=== PATIENT | female | born 2005 | race Caucasian/White ===

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

== ENCOUNTER → 2024-01-15 | Outpatient (CLI) | payer BC, MEDICAID, SELFPAY | END | disposition home or self-care (01) | LOC: LABSPEC 11:20 | PROVIDERS: PCP Student in an Organized Health Care Education/Training Program; Referring Provider Advanced Practice Midwife; Visit Provider Advanced Practice Midwife | DX: O98.819 Other maternal infectious and parasitic diseases complicating pregnancy, unspecified trimester (principal); A74.9 Chlamydial infection, unspecified; Z3A.00 Weeks of gestation of pregnancy not specified | CPT/HCPCS: 87081; 87491; 87591 ==

== ENCOUNTER 2024-02-04 22:18 | Inpatient (IN) | payer BC, MEDICAID, SELFPAY ==
[2024-02-04] VITALS (10 sets, daily range): BP systolic 133–142; BP diastolic 64–90; PULSE 67–112; RESP 14–16; TEMP 36.6–36.7; O2SAT 97–98; BMI 31.1
[2024-02-04] MEDS: Lactated Ringers 1,000 ML 50 ML IV (22:30)
[2024-02-04 23:01] LABS: Absolute Lymphocyte Count 1.68 X10^3/uL (0.83-4.51); Absolute Neutrophil Count 6.6 X10^3/uL (2.0-7.7); Basophil# 0.04 X10^3/uL; Basophil% 0.4 % (0-1); Eosinophil# 0.38 X10^3/uL; Hematocrit 34.9 % (37-47); Hemoglobin 12.1 g/dL (12.0-15.0); Lymphocyte # 1.68 X10^3/ul (0.83-4.51); Lymphocyte % 17.7 % (19-41); Mean Corp Hgb Conc 34.7 g/dL (32-36); Mean Corpuscular Hgb 30.9 pg (27.0-32.0); Mean Platelet Vol. 9.7 fl (6.2-12.0); Monocyte# 0.62 X10^3/uL; Monocyte% 6.5 % (0-10); NRBC Flagged by Analyzer 0 % (0-5); Neutrophil # 6.61 X10^3/uL (2.7-7.7); Neutrophil % 69.9 % (47-70); Platelet Count 193 K/mm3 (150-450); RBC Distribution Width SD 42.2 fl (35.1-43.9); Red Blood Count 3.92 M/mm3 (4.2-5.4); White Blood Count 9.5 K/mm3 (4.4-11.0)
[2024-02-04] MEDS: Lactated Ringers 1,000 ML 999 ML IV (23:27)
[2024-02-04 23:50] LABS: Syphilis Antibodies Reactive
[2024-02-05] VITALS (57 sets, daily range): BP systolic 114–153; BP diastolic 59–83; PULSE 73–111; RESP 16–20; TEMP 36.5–37.8; O2SAT 94–99
[2024-02-05] MEDS: fentaNYL-bupivacaine (epidural) 100 ML BAG EPIDURAL ×2 (00:05→05:19)
--- NOTE | 2024-02-05 06:56 | HP.PCM.OB_ITS ---
HPI - General General Date of Admission: 02/04/24 Date of Service: 02/05/24 HPI Narrative JAQUELINE BARKER, is a 18 F at 39.3 weeks gestation who presents to unit in active labor. Maternal Data Information GEORGIE Calculator Estimated Delivery Date Method Current WG Current Estimate 02/09/24 LMP (Certain) 39w 3d Final GEORGIE: 02/09/24 Final GEORGIE Source: US >20 weeks Gestational age: 39.3 weeks [facility] Medical History (Updated 02/05/24 @ 07:02 by Mariah Eric CNM) Seasonal allergies Bipolar disorder Home Medications ?Medication ?Instructions ?Recorded ?Last Taken ?Type multivitamin no.47-iron fum 27 1 cap PO DAILY 06/26/23 02/04/24 History mg-folate no.1 1 mg-dha 300 mg capsule (PNV-DHA) Allergy/AdvReac Type Severity Reaction Status Date / Time milk Allergy Anaphylaxis Verified 02/04/24 22:43 Family History Grandmother Cancer, Onset Age: 80 maternal Great Grandmother- ovarian Surgical History S/P tonsillectomy Social History adopted: No household members: family current occupational status: employed 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 pets and animals: Yes pets and animals: dog(s) history of recent travel: No sexually active: Yes Smoking Status: Never smoker alcohol intake: never substance use type: does not use well-balanced diet: daily or most days caffeine: Yes (occasional) Type: coffee Number of servings: 1 eating out: 1-3 times/week during the past year weight has: remained stable what type of physical activity do you participate in: walking frequency: 1-2 times per week duration: 60-90 minutes/day dirk/catholic: None seatbelt use: always do you feel safe at home: Yes additional social history: FOB Kamari History 1 Elective abortions Hx Para 0 Spontaneous abortions Hx # Term Pregnancies Ectopic pregnancies Hx # Pregnancies Multiple births # of living children Visit Details Expected Delivery Route/Plan Labor Preferences- CB/BF classes: none labor support person: [] labor intervention preferences: pain management options preferred: plans epidural cut cord/dad catch: [] : [] PP control planned: [] discussed possible routes of delivery and associated risks: [] special requests: [] Plans Covid status: [] Flu vaccine: declined Tdap vaccine: given Rhogam:na LARC form signed: dclined movement and labor precautions reviewed. Problem list reviewed and updated with the most current plan of care details and appropriate orders placed. Relevant counseling for the gestational age provided. Continue routine care and follow up unless otherwise noted in visit notes/problem list details OB Flowsheet Initial Weight: 119 lb Date -?-?-?-?-?-?-?-?-?-?-?-?- EGA Weight BP Urine Prot -?-?-?-?-?-?-?-?-?-?-?-?- Glucose FHR FuHt Pres Dilation -?-?-?-?-?-?-?-?-?-?-?-?- Effaced St Visit Note 07/02/23 -?-?-?-?-?-?-?-?-?-?-?-?- 8w 2d 119 lb 4 oz (+4 oz) 138/92 -?-?-?-?-?-?-?-?-?-?-?-?- 168 -?-?-?-?-?-?-?-?-?-?-?-?- KW- CRL cons wit h dates. Declines NIPT. 07/30/23 -?-?-?-?-?-?-?-?-?-?-?-?- 12w 2d 121 lb (+2 lb) 130/73 Negative -?-?-?-?-?-?-?-?-?-?-?-?- Negative 160 -?-?-?-?-?-?-?-?-?-?-?-?- SM- no vb crmapi ng reviewed needs NOB labs drawn, took chlamydia treatment, plan DANNIELLE next visit, partner was treated. 08/27/23 -?-?-?-?-?-?-?-?-?-?-?-?- 16w 2d 127 lb 8 oz (+8 lb 8 oz) 126/73 -?-?-?-?-?-?-?-?-?-?-?-?- 165 -?-?-?-?-?-?-?-?-?-?-?-?- JV- Chlamydia TO C today. no complaints. mfm ultrasound scheduled for 09/1610/02/23 -?-?-?-?-?-?-?-?-?-?-?-?- 21w 3d 141 lb (+22 lb) 102/66 Negative -?-?-?-?-?-?-?-?-?-?-?-?- Negative 150 22 -?-?-?-?-?-?-?-?-?-?-?-?- KW- no vb/crampi ng. good fm. normal anatomy. KW- no vb/cramping. good fm. normal anatomy. DANNIELLE neg on 08/2610/19/23 -?-?-?-?-?-?-?-?-?-?-?--?- 23w 6d 146 lb 4 oz (+27 lb 4 oz) 120/68 Negative -?-?-?-?-?-?-?-?-?-?-?-?- Negative 165 23 -?-?-?-?-?-?-?-?-?-?-?-?- JV- no lof, vagi nal bleeding, or cramping. no complaints today. gct ordered. pt starting back at school next thursday. 11/16/23 -?-?-?-?-?-?-?-?-?-?-?-?- 27w 6d 152 lb (+33 lb) 152 lb (+33 lb) 121/88 Negative -?-?-?-?-?-?-?-?-?-?-?-?- Negative 150 27 -?-?-?-?-?-?-?-?-?-?-?-?- SM- no vb lof go od fm no regular ctx 12/04/23 -?-?-?-?-?-?-?-?-?-?-?-?- 30w 3d 156 lb (+37 lb) 121/72 Negative -?-?-?-?-?-?-?-?-?--?-?-?- Negative 140 31 -?-?-?-?-?-?-?-?-?-?-?-?- LC- no vb/ctx/lo f. good fm. no concerns today. desires tdap next visit. 12/22/23 -?-?-?-?-?-?--?-?-?-?-?-?- 33w 0d 164 lb (+45 lb) 113/72 Negative -?-?-?-?-?-?-?-?-?-?-?-?- Negative 135 33 -?-?-?-?-?-?-?-?-?-?-?-?- KW- no vb/crampi ng. good fm. LARC today. declines Tdap and flu. 01/01/24 -?-?-?-?-?-?-?-?-?-?-?-?- 34w 3d 168 lb (+49 lb) 122/77 Negative -?-?-?-?-?-?-?-?-?-?-?-?- Negative 140 34 Cephalic -?-?-?-?-?-?-?-?-?-?-?-?- SM- no vb lof go od fm no regular ctxx tdap given 01/15/24 -?-?-?-?-?-?-?-?-?-?-?-?- 36w 3d 169 lb (+50 lb) 118/71 -?-?-?-?-?-?-?-?-?-?-?-?- 140 36 Cephalic -?-?-?-?-?-?-?-?-?-?-?-?- KW- no vb/lof/ct x. good fm. gbs and ggc today. declines vag exam today 01/22/24 -?-?-?-?-?-?-?-?-?-?-?-?- 37w 3d 172 lb (+53 lb) 137/76 -?-?-?-?-?-?-?-?-?-?-?-?- 145 37 Cephalic -?-?-?-?-?-?-?-?-?-?-?-?- kw- No vb/lof/ct x. good fm. no concerns today. 02/03/24 -?-?-?-?-?-?-?-?-?-?-?-?- 39w 1d 178 lb 8 oz (+59 lb 8 oz) 130/81 Negative -?-?-?-?-?-?-?-?-?-?-?-?- Negative 140 39 Cephalic 1 .5 -?-?-?-?-?-?-?-?-?-?--?-?- 70 -1 SM- no vb lof good fm nro eugalr ctx NST FHR Rate Baby A Baseline: 145 Variability:: Moderate Accelerations:: 15 x 15 Decelerations:: None NST Reactive:: Yes FHR Category:: Category I Uterine Activity:: 2-3 ROS Constitutional Constitutional: Denies change in weight, fatigue, fever(s), headache(s), poor appetite or weakness Eyes Eyes: Denies blurry vision, change in vision, floaters, seeing flashes or spots in vision ENT HEENT: Denies dizziness, headache(s), loss taste/smell or sore throat Cardiovascular Cardiovascular: Denies chest pain, dizziness, dyspnea, irregular heart rhythm, lightheadedness, palpitations or rapid heart rate Respiratory/Chest Respiratory/Chest: Denies change in mental status, chest tightness, cough, dyspnea or breast pain Gastrointestinal Gastrointestinal: Denies anorexia, chewing difficulty, constipation, diarrhea or weight changes Genitourinary Genitourinary: Denies difficulty urinating, dysuria, flank pain, genital pain, urinary frequency or urinary urgency Musculoskeletal Musculoskeletal: Denies back pain, difficulty walking, extremity pain, joint pain, muscle cramps or muscle weakness Integumentary Integumentary: Denies lesions or unusual bruising Neurologic Neurologic: Denies abnormal movements, abnormal speech, dizziness, numbness, seizure-like activity, syncope or weakness Psychiatric Psychiatric: Denies behavioral changes, change in appetite, confusion, depression, homicidal ideation, suicidal ideation or suicidal thoughts Endocrine Endocrinology: Denies excessive sweating, polydipsia or polyuria Hematologic/Lymphatic Hematologic/Lymphatic: Denies anemia Allergic/Immunologic Allergic/Immunologic: Denies itchy eyes, lip swelling, throat swelling, tongue swelling or wheezing Vital Signs Vital Signs Vital Signs: 02/04/24 22:07 02/04/24 22:07 02/04/24 22:07 Temperature 98.1 F Temperature Source Temporal Pulse Rate Respiratory Rate 14 Blood Pressure BP Systolic BP Diastolic Pulse Ox 02/04/24 22:09 02/04/24 22:09 02/04/24 23:13 Temperature Temperature Source Pulse Rate 82 Respiratory Rate Blood Pressure 138/77 H 135/75 H BP Systolic 138 135 BP Diastolic 77 75 Pulse Ox 02/04/24 23:13 02/04/24 23:13 02/04/24 23:13 Temperature Temperature Source Temporal Pulse Rate 94 Respiratory Rate 16 Blood Pressure BP Systolic BP Diastolic Pulse Ox 02/04/24 23:13 02/04/24 23:46 02/04/24 23:46 Temperature 97.9 F Temperature Source Pulse Rate 112 H Respiratory Rate Blood Pressure 142/89 H BP Systolic 142 BP Diastolic 89 Pulse Ox 02/04/24 23:47 02/04/24 23:47 02/04/24 23:52 Temperature Temperature Source Pulse Rate 92 98 Respiratory Rate Blood Pressure BP Systolic BP Diastolic Pulse Ox 97 02/04/24 23:52 02/04/24 23:53 02/04/24 23:53 Temperature Temperature Source Pulse Rate 106 H Respiratory Rate Blood Pressure 141/90 H BP Systolic 141 BP Diastolic 90 Pulse Ox 98 02/04/24 23:55 02/04/24 23:55 02/04/24 23:57 Temperature Temperature Source Pulse Rate 67 92 Respiratory Rate Blood Pressure 138/71 H BP Systolic 138 BP Diastolic 71 Pulse Ox 02/04/24 23:57 02/04/24 23:58 02/04/24 23:58 Temperature Temperature Source Pulse Rate 84 Respiratory Rate Blood Pressure 133/64 H BP Systolic 133 BP Diastolic 64 Pulse Ox 98 02/04/24 23:58 02/05/24 00:02 02/05/24 00:02 Temperature Temperature Source Pulse Rate 93 Respiratory Rate 16 Blood Pressure BP Systolic BP Diastolic Pulse Ox 98 02/05/24 00:03 02/05/24 00:03 02/05/24 00:03 Temperature Temperature Source Pulse Rate 101 H Respiratory Rate 16 Blood Pressure 136/78 H BP Systolic 136 BP Diastolic 78 Pulse Ox 02/05/24 00:08 02/05/24 00:08 02/05/24 00:08 Temperature Temperature Source Pulse Rate 98 Respiratory Rate 16 Blood Pressure 138/79 H BP Systolic 138 BP Diastolic 79 Pulse Ox 02/05/24 00:13 02/05/24 00:13 02/05/24 00:13 Temperature Temperature Source Pulse Rate 84 Respiratory Rate 16 Blood Pressure 125/59 H BP Systolic 125 BP Diastolic 59 Pulse Ox 02/05/24 00:14 02/05/24 00:14 02/05/24 00:18 Temperature Temperature Source Pulse Rate 79 Respiratory Rate Blood Pressure 134/64 H BP Systolic 134 BP Diastolic 64 Pulse Ox 98 02/05/24 00:18 02/05/24 00:18 02/05/24 00:19 Temperature Temperature Source Pulse Rate 90 90 Respiratory Rate 16 Blood Pressure BP Systolic BP Diastolic Pulse Ox 02/05/24 00:19 02/05/24 00:23 02/05/24 00:23 Temperature Temperature Source Pulse Rate 95 Respiratory Rate Blood Pressure 121/80 H BP Systolic 121 BP Diastolic 80 Pulse Ox 98 02/05/24 00:23 02/05/24 00:24 02/05/24 00:24 Temperature Temperature Source Pulse Rate 86 Respiratory Rate 16 Blood Pressure BP Systolic BP Diastolic Pulse Ox 98 02/05/24 00:29 02/05/24 00:29 02/05/24 00:34 Temperature Temperature Source Pulse Rate 79 91 Respiratory Rate Blood Pressure BP Systolic BP Diastolic Pulse Ox 98 02/05/24 00:34 02/05/24 00:39 02/05/24 00:39 Temperature Temperature Source Pulse Rate 78 Respiratory Rate Blood Pressure BP Systolic BP Diastolic Pulse Ox 98 98 02/05/24 01:06 02/05/24 01:06 02/05/24 01:11 Temperature Temperature Source Pulse Rate 82 Respiratory Rate Blood Pressure 153/82 H 140/72 H BP Systolic 153 140 BP Diastolic 82 72 Pulse Ox 02/05/24 01:11 02/05/24 01:11 02/05/24 01:11 Temperature Temperature Source Temporal Pulse Rate 83 Respiratory Rate 16 Blood Pressure BP Systolic BP Diastolic Pulse Ox 02/05/24 01:11 02/05/24 01:49 02/05/24 01:49 Temperature 97.9 F Temperature Source Pulse Rate 82 Respiratory Rate Blood Pressure 134/70 H BP Systolic 134 BP Diastolic 70 Pulse Ox 02/05/24 01:49 02/05/24 01:49 02/05/24 02:39 Temperature 97.7 F L Temperature Source Temporal Pulse Rate Respiratory Rate 16 Blood Pressure BP Systolic BP Diastolic Pulse Ox 02/05/24 02:39 02/05/24 02:39 02/05/24 02:39 Temperature Temperature Source Pulse Rate 83 Respiratory Rate 16 Blood Pressure 129/74 H BP Systolic 129 BP Diastolic 74 Pulse Ox 02/05/24 02:39 02/05/24 03:43 02/05/24 03:43 Temperature 97.8 F Temperature Source Temporal Pulse Rate Respiratory Rate Blood Pressure 126/72 H BP Systolic 126 BP Diastolic 72 Pulse Ox 02/05/24 03:43 02/05/24 03:43 02/05/24 03:43 Temperature 98.2 F Temperature Source Pulse Rate 82 Respiratory Rate 16 Blood Pressure BP Systolic BP Diastolic Pulse Ox 02/05/24 04:39 02/05/24 04:39 02/05/24 04:39 Temperature 98.1 F Temperature Source Temporal Pulse Rate Respiratory Rate 16 Blood Pressure BP Systolic BP Diastolic Pulse Ox 02/05/24 04:40 02/05/24 04:40 02/05/24 04:40 Temperature Temperature Source Pulse Rate 81 78 Respiratory Rate Blood Pressure 121/72 H BP Systolic 121 BP Diastolic 72 Pulse Ox 02/05/24 04:40 02/05/24 05:54 02/05/24 05:54 Temperature Temperature Source Temporal Pulse Rate Respiratory Rate Blood Pressure 122/78 H BP Systolic 122 BP Diastolic 78 Pulse Ox 97 02/05/24 05:54 02/05/24 05:54 02/05/24 05:54 Temperature 98.4 F Temperature Source Pulse Rate 82 Respiratory Rate 16 Blood Pressure BP Systolic BP Diastolic Pulse Ox Weight Weight: 181 lb 12.8 oz Body Mass Index (BMI) 31.1 Physical Exam Const alert, oriented x3 and no apparent distress General Appearance: cooperative Orientation / Consciousness: awake HEENT normocephalic Neck full ROM Lymph Lymphatic: no lymphadenopathy noted Chest inspection of chest normal Resp normal respiratory effort and normal air movement Effort and Inspection: able to speak in complete sentences and symmetric chest movement GI soft to palpation and non-tender Inspection: gravid Palpation: soft; Negative for tender external exam normal Back/Spine normal to inspection Extremity normal to inspection and full ROM Skin no rashes or lesions noted Psych mental status grossly normal Appearance: grossly normal Speech: normal speech Labs Labs Labs: Blood Type O POSITIVE Antibody Screen NEGATIVE Hct 34.9 % (37-47) L Hgb 12.1 g/dL (12.0-15.0) Syphilis Total Ab Reactive Rubella IgG Antibody Reactive (Nonreactive) Hep Bs Antigen Non-Reactive (Nonreactive) Hepatitis C Antibody Non-Reactive (Nonreactive) Chlamydia DNA (RODRIGUE) Positive (Negative) H N.gonorrhoeae DNA (RODRIGUE) Negative (Negative) HIV 1&2 Antibody Non-Reactive (Nonreactive) Glucose 1 Hr 50 gm 110 mg/dL (70-140) Miscellaneous Test Assessment & Plan (1) Active labor: PLAN: Patient presents IAL, plan expectant management for , pitocin/AROM PRN if needed. Pain management: plans epidural. GBS positive plan IV PCN. Management of any complications: see problem list I have reviewed the [facility] and made any clinically relevant updates. Dr Ceballos aware of admission and plan. agrees with above. (2) Chlamydia infection affecting : COMMENT: DANNIELLE at 2nd appt/neg and at 36 weeks (3) Depression: (4) Anxiety: (5) Supervision of high-risk : COMMENT: PRR, , GEORGIE 02/09/24,boy Kamari the fifth FOB Kamari (6) : QUALIFIERS: Weeks of gestation: 39 weeks Qualified Code(s): Z3A.39 - 39 weeks gestation of COMMENT: GBS neg, discussed genetic & carrier testing (7) Brendon-Danlos syndrome: (8) Bipolar disorder: COMMENT: not on meds Charges/Coding Multi Select Codes Urinary/Genital Urinary/Genital CPT Codes: No Charge
[2024-02-05] MEDS: Oxytocin 15 Units/NS 250ml 15 UNITS/250 ML IV.SOLN 334 UNITS IV (11:05)
[2024-02-05] MEDS: Oxytocin 10 UNITS/ML Vial IM (11:05)
--- NOTE | 2024-02-05 11:32 | EX.PCM.OBVAG ---
Assessment & Plan (1) Active labor: (2) Chlamydia infection affecting : COMMENT: DANNIELLE at 2nd appt/neg and at 36 weeks (3) Depression: (4) Anxiety: (5) Supervision of high-risk : COMMENT: PRR, , GEORGIE 02/09/24,boy Kamari the fifth FOB Kamari (6) : QUALIFIERS: Weeks of gestation: 39 weeks Qualified Code(s): Z3A.39 - 39 weeks gestation of COMMENT: GBS neg, discussed genetic & carrier testing (7) Brendon-Danlos syndrome: (8) Bipolar disorder: COMMENT: not on meds Maternal Data Information GEORGIE Calculator Estimated Delivery Date Method Current WG Current Estimate 02/09/24 LMP (Certain) 39w 3d Final GEORGIE: 02/09/24 Final GEORGIE Source: LMP Doctor Who Attended Delivery: Kalin Grey Vaginal Delivery Maternal Presentation Maternal Presentation: Active Labor Type of Induction: Amniotomy Vaginal Delivery Information Procedure Performed: Vacuum Assisted Vaginal Delivery Station at time of placement: +2 Number of vacuum pulls: 3 Number of vacuum pop offs: 2 Surgeon/Practitioner: Tatyana Mckinnon Date of Procedure: 02/05/24 Pre-Procedure Diagnosis: 18 y/o @ 39 weeks 3 days, active labor, maternal exhaustion Post-Procedure Diagnosis: 18 y/o @ 39 weeks 3 days, active labor, maternal exhaustion Type of anesthesia: Epidural Estimated Blood Loss: 200cc Time of Delivery: 11:02 Findings Description of procedure: The patient presented to labor and delivery in the middle of the night on 02/05/2020 for an active labor. She progressed to complete and pushed for 3 hours. heart rate was showing some late decelerations and variable decelerations and the patient was requesting a vacuum-assisted delivery. The risk benefits and alternatives were discussed with the patient and verbal consent was obtained. The Kiwi vacuum was placed on the infant's head at a +2 station. The first pull was uneventful however the suction was lost slightly. The second pole resulted in a pop-off the third pole was accompanied by a right medial lateral episiotomy and the head delivered atraumatically in the SARAH position. A loose nuchal cord ?1 was identified and easily reduced over the 's head. The anterior and posterior shoulders delivered without complication followed by the rest of the infant and the infant was placed on the maternal abdomen. Delayed cord clamping was employed for approximately 60 seconds. Cord was clamped and cut and gentle traction was applied to the cord and the placenta delivered spontaneously immediately following it was noted to be intact with three-vessel cord. The perineum and vagina were inspected and noted to have a first-degree laceration and a left vaginal sidewall laceration extending to the left labia. This was repaired using a 2-0 Vicryl. EBL was 200cc. Patient and infant tolerated delivery well. Presentation: SARAH Amniotic Membrane Rupture Type: Artificial Amniotic Fluid Description: Clear Placental Delivery Description: Spontaneous Placenta Disposition: [facility] Specimen collected: No Cord Vessel Description: 3 Vessels Cord Entanglement: Around neck x 1, loose Cord Gases: ABG and VBG Infant A Gender: Male (1 minute): 8 (5 minute): 9 Delayed Cord Clamping: Yes Livestock Nutritionist sewing machine repairer: No Post Vaginal Deli Medications given after delivery: IV Pitocin and IM Pitocin Episiotomy Description: 1st degree Laceration: Vaginal Extension/lac and 2nd degree Complication Complications: No Multi Select Codes Urinary/Genital Urinary/Genital CPT Codes: 21298 [facility]
--- NOTE | 2024-02-05 11:39 | DCINST_ITS ---
Discharge Instructions Diet Discharge Diet: No restrictions DC O2, CPAP, BIPAP needs Additional Home O2 Discharge instructions: No Dressing / Incision Discharge Activity: Return to Normal Activity, May Not Drive (while taking na rcotic pain medications.) and May Shower May resume sexual activity in: 4-6 weeks Dressing / Incision Call your doctor if your incision/area has: Continuous Slow Oozing, Sudden Increased Bleeding, Increased Pain/ Swelling, Increased Redness and Foul Smelling Discharge Follow Up Care Please Follow Up With: Tatyana Mckinnon DO When: Call [phone] to make an appointment with your doctor in 6 weeks. If you had elevated blood pressure or 4th degree laceration, you will need to be seen in 2 weeks. Test Results: Test results from this visit will be discussed in further detail at your follow- up appointment, if applicable. Discharge Plan Admission Admit Date/Time: 02/04/24 22:18 Attending Provider: Tatyana Mckinnon Primary Care Provider: Yadiel Armstrong Discharge Orders/Prescriptions Prescriptions: No Action PNV-DHA 27 mg iron-1 mg -300 mg capsule 1 cap PO DAILY Referrals / Follow Up: Yadiel Armstrong DO [Primary Care Provider] -
[2024-02-05] MEDS: Oxytocin 15 Units/NS 250ml 15 UNITS/250 ML IV.SOLN 83 UNITS IV (12:46)
[2024-02-05] MEDS: Ibuprofen 600 MG Tablet PO ×2 (12:47→23:19)
[2024-02-05] MEDS: Benzocaine/Lanolin/Aloe Vera 85 GM Spray 1 SPRAY TOPICAL (14:21)
[2024-02-05] MEDS: 0.9% Saline Lock 10 ML Syringe IV (15:59)
[2024-02-05] MEDS: Acetaminophen 500 MG Tablet 1000 MG PO (19:45)
[2024-02-06 03:19] VITALS: BP 122/67; PULSE 85
[2024-02-06 03:21] VITALS: BP 122/67; PULSE 85; RESP 16; TEMP 36.3
--- NOTE | 2024-02-06 07:55 | PN.OBGYN_ITS ---
Subjective Subjective Patient doing well without complaints. Tolerating PO. Ambulating and voiding without difficulty. Feeding well. Denies chest pain, shortness of breath, calf pain/swelling, fevers, chills, lightheadedness. Objective Data Objective Data Vital Signs: Vital Signs Temp Pulse Resp BP Pulse Ox O2 Del Method 97.4 F L 85 16 122/67 H 98 Room Air 02/06/24 03:21 02/06/24 03:21 02/06/24 03:21 02/06/24 03:21 02/05/24 23:21 02/06/24 03:21 Oxygen Delivery Method Room Air Weight: 181 lb 12.8 oz Body Mass Index (BMI) 31.1 Intake & Output: Intake and Output for Last 24 Hours 02/04/24 02/05/24 02/06/24 23:59 23:59 23:59 Intake Total 2500.00 / 2500.00 Output Total 1605 / 1605 Balance 895.00 / 895.00 Lab / Micro Data Attestation: I reviewed the patient's lab results. 02/04/24 22:30 ROS Constitutional Constitutional: Reports systems reviewed and no addt'l complaints, except as documented; Denies anorexia or headache(s) Cardiovascular Cardiovascular: Reports systems reviewed and no addt'l complaints, except as documented; Denies dizziness, dyspnea, nausea or tachypnea Respiratory/Chest Respiratory/Chest: Reports systems reviewed and no addt'l complaints, except as documented; Denies cough, dyspnea, shortness of breath at rest or tachypnea Gastrointestinal Gastrointestinal: Reports systems reviewed and no addt'l complaints, except as documented; Denies abdominal pain, constipation or nausea Genitourinary Genitourinary: Reports systems reviewed and no addt'l complaints, except as documented; Denies burning urination, difficulty urinating, dysuria, urinary frequency or urinary incontinence Musculoskeletal Musculoskeletal: Reports systems reviewed and no addt'l complaints, except as documented Integumentary Integumentary: Reports systems reviewed and no addt'l complaints, except as documented Neurologic Neurologic: Reports systems reviewed and no addt'l complaints, except as documented; Denies abnormal speech, dizziness or headache(s) Psychiatric Psychiatric: Reports systems reviewed and no addt'l complaints, except as documented Endocrine Endocrinology: Reports systems reviewed and no addt'l complaints, except as documented Hematologic/Lymphatic Hematologic/Lymphatic: Reports systems reviewed and no addt'l complaints, except as documented Physical Exam Const alert, oriented x3 and no apparent distress Neck full ROM Resp normal respiratory effort, normal air movement and no retractions Effort and Inspection: able to speak in complete sentences and symmetric chest movement GI soft to palpation Bladder / Kidney Exam: bladder normal to palpation Uterus Palpation: uterus fundus firm Extremity normal to inspection and full ROM Psych mental status grossly normal, thought process normal and cooperative Assessment & Plan (1) Vaginal delivery: PLAN: s/p PPD # 1 1. routine post delivery care 2. breast feeding- support given 3. rh positive 4. rubella immune 5.discharge home if desired (2) Active labor: (3) Chlamydia infection affecting : COMMENT: DANNIELLE at 2nd appt/neg and at 36 weeks (4) Depression: (5) Anxiety: (6) Supervision of high-risk : COMMENT: PRR, , GEORGIE 02/09/24,boy Kamari the fifth FOB Kamari (7) : QUALIFIERS: Weeks of gestation: 39 weeks Qualified Code(s): Z 3A.39 - 39 weeks gestation of COMMENT: GBS neg, discussed genetic & carrier testing (8) Brendon-Danlos syndrome: (9) Bipolar disorder: COMMENT: not on meds Charges/Coding Multi Select Codes Urinary/Genital Urinary/Genital CPT Codes: No Charge
[2024-02-06 08:00] VITALS: BP 119/62; PULSE 85; RESP 16; TEMP 36.6; O2SAT 97
[2024-02-06 08:05] VITALS: BP 119/62; PULSE 85
[2024-02-06] MEDS: Ibuprofen 600 MG Tablet PO ×2 (08:10→16:58)
--- NOTE | 2024-02-06 09:49 | PCM.DC.SUM ---
Providers Date of Admission: 02/04/24 Primary Care Physician: Dr. Yadiel Armstrong DO Reason For Visit: VAGINAL DELIVERY Diagnosis Discharge Diagnosis (1) Vaginal delivery: Status: Acute Code(s): O80 - Encounter for full-term uncomplicated delivery (2) Active labor: Status: Acute (3) Chlamydia infection affecting : Status: Acute Code(s): O98.819 - Other maternal infectious and parasitic diseases complicating , unspecified trimester; A74.9 - Chlamydial infection, unspecified (4) Depression: Status: Acute Code(s): F32.A - Depression, unspecified (5) Anxiety: Status: Acute Code(s): F41.9 - Anxiety disorder, unspecified (6) Supervision of high-risk : Status: Acute Code(s): O09.90 - Supervision of high risk , unspecified, unspecified trimester (7) : Status: Acute Code(s): Z34.90 - Encounter for supervision of normal , unspecified, unspecified trimester Qualifiers: Weeks of gestation: 39 weeks Qualified Code(s): Z3A.39 - 39 weeks gestation of (8) Brendon-Danlos syndrome: Status: Acute Code(s): Q79.60 - Brendon-Danlos syndrome, unspecified (9) Bipolar disorder: Status: Acute Code(s): F31.9 - Bipolar disorder, unspecified Medications at Discharge Home Medications multivitamin no.47-iron fum 27 mg-folate no.1 1 mg-dha 300 mg capsule (PNV-DHA) 1 cap PO DAILY 06/26/23 Hospital Course Operations None Procedures - (vacuum assisted vaginal delivery ) Summary of Care Provided Minutes Spent on Discharge: 10 Hospital Course: The patient was admitted in active labor on 02/05/24. decelerations were noted at the end of labor and a vacuum assisted vaginal delivery was achieved on 02/05/24. She recovered well and was observed for 24 hours then discharged to home with her baby in stable condition on 02/06/24 Physical Exam Const alert, oriented x3 and no apparent distress General Appearance: cooperative and comfortable Resp normal respiratory effort Cardio regular rate GI normal to inspection, nondistended, normoactive bowel sounds GI Narrative: uterus is firm below umbilicus Palpation: soft Back/Spine no CVA tenderness and thoraco-lumbar ROM normal Extremity normal to inspection, no clubbing, cyanosis or edema, no calf tenderness and no pedal edema Psych mental status grossly normal, thought process normal, cooperative, affect normal, speech normal, activity/motor behavior normal, denies homicidal ideation and denies suicidal ideation Weight / BMI Weight Weight: 181 lb 12.8 oz Body Mass Index (BMI) 31.1 ABG / Lab / Microbiology Data 02/04/24 22:30 D/C Instructions Discharge Diet: No restrictions May resume sexual activity in: 4-6 weeks Call your doctor if your incision/area has: Continuous Slow Oozing, Sudden Increased Bleeding, Increased Pain/ Swelling, Increased Redness and Foul Smelling Discharge DC O2, CPAP, BIPAP Needs Additional Home O2 Discharge instructions: No DC home with Oxygen: No Please Follow Up With: Tatyana Mckinnon DO When: Call [phone] to make an appointment with your doctor in 6 weeks. If you had elevated blood pressure or 4th degree laceration, you will need to be seen in 2 weeks. Meaningful Use Info Meaningful Use Meaningful Use Diagnoses (Choose all that apply): None applicable AMI/Post PCI/Angioplasty Aspirin given w/in 24hrs of arrival?: No Reason no aspirin w/in 24hrs of arrival?: not needed Ischemic Stroke Statin Dosing Therapy Reference: STATIN DOSE THERAPY REFERENCE: * Patients > 75 years receive moderate or high dose statin therapy. * Patients 75 years or YOUNGER should receive HIGH intensity statin dose unless contraindicated. You will be required to document reason for non-treatment if statin daily dose does not meet guidelines. HIGH DOSE STATIN THERAPY DAILY Atorvastatin > than or = to 40 mg Rosuvastatin > than or = to 20 mg Amlodipine + Atorvastatin > than or = to 2.5/40 mg Ezetimibe + Simvastatin 10/80 mg Simvastatin 80mg Discharge Plan Admission Admit Date/Time: 02/04/24 22:18 Attending Provider: Tatyana Mckinnon Primary Care Provider: Yadiel Armstrong Instructions Patient Instructions: After a Vaginal Discharge Orders/Prescriptions Prescriptions: No Action PNV-DHA 27 mg iron-1 mg -300 mg capsule 1 cap PO DAILY Referrals / Follow Up: Yadiel Armstrong DO [Primary Care Provider] - Disposition Disposition (needs filled in before D/C Order can be placed): Home, Self Care
--- NOTE | 2024-02-06 13:35 | CASEMGMT ---
Social Work Assessment Labor and Delivery Unit Patient Address: [address] [place] [address]. [place] [address] Phone number: [phone] Date of Referral: 02/05/2024 Time of Referral: 18:44 Referred By: Mariah Eric Date of Intervention: 02/06/2024 Time of Intervention: 13:34 Reason for Referral: Bipolar and Anxiety History obtained from: Medical records, mother of baby (MOB) and father of baby (FOB).? Household composition: MOB (Elida, age 19), FOB (Kamari), Kamari, born 02/05/2024, ?s paternal grandmother (PGM) Yolande, paternal grandfather (PGF) Kamari and paternal uncles, Luis Armando, age 17 and Bro, age 8. ? Patient's parent/guardian status: MOB and FOB have been together for 10 months. MOB and FOB are not . ??Both are actively involved and will be providing care for baby. MOB denied any concerns with domestic violence and described a positive and supportive relationship with the FOB. Medical History: : 1, Para, now 1. MOB received PNC through [place] beginning at 8 weeks and 2 days. Apgars: 9 and 9. Weight: 3720 grams. Construction Crew Member: To be determined but will be through [facility] in [place]. Educational Status: MOB and FOB denied any issues or concerns with reading or writing. MOB is currently enrolled in college and the FOB is a High School graduate. Financial Status: MOB and FOB reported their income is sufficient to meet their needs at this time by being allowed to live with ?s paternal side of the family. MOB is currently employed part-time and gets to take as much time off as needed post-delivery. FOB is currently employed full-time in the area of crating/building garage doors. Infant Supplies: MOB and FOB reported they have all the supplies they need for baby at this time including but not limited to: Car seat, bassinet, pack-n-play, crib, diapers, bottles, formula and clothing. Childcare/Caregiver(s):? MOB reported she and the FOB will both provide care for when home and also identified both sets of ?s grandparents as being able to help when needed. Transportation:? MOB and FOB reported they are both licensed drivers and have a reliable vehicle to take baby to and from all medical appointments. No transportation issues identified. Programs/Agencies Involved: DANYEL reported she is currently involved with [employer] with Medicaid as a secondary insurance and is planning on getting connected with WIC. Children Services/Legal Issues:? Denied. Behavioral Health Issues: ??Mental Health History: DANYEL has a history of anxiety, depression and bipolar.? DANYEL used to be on medication however went off it once she found out she was and reported as of right now she is not planning on going back on it due to reporting that MH needs are being managed at this time without medication. Appliance Technician provided education. ?Substance Use History: Denied. ?Family History: Yes. MOB?s father has a history of depression and bipolar and MOB?s maternal grandfather is an alcoholic but has been sober for 15 years. MOB?s maternal grandfather?s brother due to alcohol related issues. ??Drug Screens: None obtained at the time of this admission. ? Family/Social Stressors: MOB and FOB denied any current family or social stressors. ? Support Systems: Ample.? MOB and FOB identified their biggest supports as each other and their families. ? Depression/Shaken Baby/Safe Sleeping: onyx chip terrazzo worker provided verbal and written education on PPD, Safe Sleeping and Shaken Baby.? Parents verbalized an understanding. ??? ASSESSMENT:? MOB and FOB provided consent to social work visit. Upon arrival, MOB was sitting upright in the hospital bed, the FOB was sitting close-by and ?s maternal grandmother (MGM) was present as well as ?s PGM.? PGM was holding during much of the visit. MOB and FOB? both consented to visit even with their visitors.? MOB and FOB were verbally engaged however the MOB did most of the talking. onyx chip terrazzo worker observed positive interaction between the MOB and FOB as well as with the MGM and PGM. At the end of the assessment, MOB and FOB agreed to the social media job titles talking alone with the MOB.? MOB reported feeling safe at home and denied any previous or current domestic violence, drug or alcohol abuse or unmanaged mental health concerns. At one point, began to cry and the FOB got up from his chair to try and consol the as well as to get a bottle for . ?? Safe Plan of Care for infant related to substance use: N/A; not needed. ? PLAN:? Baby to be discharged home when ready.? onyx chip terrazzo worker also provided written information on depression, depression resources and Help Me Grow as additional resources offered by social media job titles which MOB and FOB accepted. No other services requested or indicated. Tatyana Nicole, MILK DRIVER, KNOTTING MACHINE OPERATOR, 02/06/2024
[2024-02-06 14:51] VITALS: BP 130/78; PULSE 100; RESP 16; TEMP 36.5; O2SAT 97
[2024-02-06 19:28] VITALS: BP 131/65; PULSE 90; RESP 16; TEMP 36.3; O2SAT 97; O2SAT 98
[2024-02-07] MEDS: Ibuprofen 600 MG Tablet PO ×2 (00:29→06:37)
[2024-02-07 03:10] VITALS: BP 131/71; PULSE 81; RESP 16; TEMP 36.1; O2SAT 93
[2024-02-07 07:49] VITALS: BP 142/68; PULSE 100; RESP 16; TEMP 36.2
[2024-02-07 08:06] VITALS: BP 142/68; PULSE 100
== END 2024-02-07 08:48 | disposition home or self-care (01) | DRG 806 ==
LOC: WPOUT 22:22 → WP 22:22
PROVIDERS: Admitting Provider Obstetrics & Gynecology; PCP Student in an Organized Health Care Education/Training Program; Referring Provider Obstetrics & Gynecology; Visit Provider Obstetrics & Gynecology
DX: O99.824 Streptococcus B carrier state complicating childbirth (principal); Z37.0 Single live birth; Q79.60 Ehlers-Danlos syndrome, unspecified; O69.81X0 Labor and delivery complicated by cord around neck, without compression, not applicable or unspecified; O99.892 Other specified diseases and conditions complicating childbirth; O70.1 Second degree perineal laceration during delivery; O75.81 Maternal exhaustion complicating labor and delivery; O76 Abnormality in fetal heart rate and rhythm complicating labor and delivery; Z3A.39 39 weeks gestation of pregnancy
CPT/HCPCS: 59025; 59050; 85025; 86780; 86850; 86900; 86901; 99221; J7120; A4216; G0378; J3490